=== PATIENT | female | born 1990 | race Caucasian/White ===

== ENCOUNTER 2016-11-11 05:28 | Emergency (ER) | payer SELFPAY ==
[~2016-11-11] VITALS: Ht 160 cm; Wt 92.2 kg
[2016-11-11] MEDS ORDERED: ONDANSETRON 2MG/ML, 2ML ONE (05:53)
[2016-11-11] MEDS ORDERED: HYDROmorphone 1 MG/ML, 1ML ONE ×2 (05:53→06:57)
[2016-11-11] MEDS: HYDROmorphone 1 MG/ML, 1ML IVPush PRN ×2 (06:00→06:58)
[2016-11-11] MEDS ORDERED: SODIUM CHLORIDE FLUSH 10ML SYR IVF ONE (06:00)
[2016-11-11] MEDS ORDERED: ONDANSETRON 2MG/ML, 2ML IVPush ONE (06:00)
[2016-11-11] MEDS ORDERED: SODIUM CHLORIDE 0.9% 1,000ML IVBOLUS ONE (06:00)
[2016-11-11 06:19] LABS: ASPARTATE AMINO TRANSFERASE 14 U/L (15-37); BLOOD UREA NITROGEN 13 mg/dL (7-18)
[2016-11-11 06:36] VITALS: BP 139/84
== END 2016-11-11 08:04 | disposition home or self-care (01) ==
LOC: ED 07:16
DX: K80.20 Calculus of gallbladder without cholecystitis without obstruction (principal); R11.0 Nausea
CPT/HCPCS: 36415; 76700; 80053; 81003; 83690; 84703; 85025; 85610; 96361; 96374; 96375; 96376; 99285; J1170; J2405; J7030